=== PATIENT | male | born 1975 | race Two or more races ===

== ENCOUNTER 2024-03-18 08:01 | Emergency (ER) | payer BC ==
[~2024-03-18] VITALS: Ht 185.4 cm; Wt 97.3 kg
[2024-03-18 08:20] VITALS: BP 147/81; PULSE 65; RESP 18; TEMP 98; O2SAT 98
[2024-03-18] MEDS ORDERED: NAPR-746 PO (08:34)
[2024-03-18] MEDS ORDERED: HYDR25SU21 PR (08:34)
== END 2024-03-18 08:42 | disposition home or self-care (01) ==
LOC: ER 08:01
DX: K60.2 Anal fissure, unspecified (principal); K64.8 Other hemorrhoids; Z79.899 Other long term (current) drug therapy